=== PATIENT | female | born 1935 | race Caucasian/White ===

== ENCOUNTER 2020-01-27 00:32 | Emergency (ER) | payer MEDICARE, MEDICAID ==
[~2020-01-27] VITALS: Ht 162.6 cm; Wt 113.6 kg
[~2020-01-27 00:32] MED LIST: CLA10T PO; CYCL-394 PO; DILT-91 PO; LANS15CA10 PO; LEVO75TA57 PO; LIOT25TA12 PO; LOSA25TA96 PO; METF500T PO; SOLI5TAB6 PO; [UNRECOGNIZED DRUG - CODE]
[2020-01-27 00:53] VITALS: BP 146/86
[2020-01-27] MEDS ORDERED: famotidine/PF 10 mg/ml inj IV ONE (01:15)
[2020-01-27] MEDS ORDERED: methylPREDNISolone sod succ 125mg/2ml vial IV ONE (01:15)
[2020-01-27] MEDS ORDERED: diphenhydrAMINE 50 mg/ml inj IV ONE ×2 (01:30→02:35)
[2020-01-27] MEDS ORDERED: proCHLORperazine 10 MG/2 ml inj IV ONE (01:55)
[2020-01-27] MEDS ORDERED: ketorolac trometh. 30mg/ml inj. IV ONE (01:55)
[2020-01-27] MEDS ORDERED: normal saline 1000ml 1,000 ML IV ONE (01:55)
[2020-01-27] MEDS ORDERED: CEPH250T PO (02:33)
== END 2020-01-27 03:16 | disposition home or self-care (01) ==
LOC: ER 00:33
DX: R21 Rash and other nonspecific skin eruption (principal); T36.8X5A Adverse effect of other systemic antibiotics, initial encounter; I48.91 Unspecified atrial fibrillation; I10 Essential (primary) hypertension; J44.9 Chronic obstructive pulmonary disease, unspecified; E11.9 Type 2 diabetes mellitus without complications; G89.29 Other chronic pain; Z98.890 Other specified postprocedural states; Z88.2 Allergy status to sulfonamides; Z88.8 Allergy status to other drugs, medicaments and biological substances; Z79.899 Other long term (current) drug therapy
CPT/HCPCS: 96374; 96375; 96376; 99284; J0780; J1200; J1885; J2930; J3490; J7030

== ENCOUNTER 2020-03-21 19:12 | Emergency (ER) | payer MEDICARE, MEDICAID ==
[~2020-03-21] VITALS: Ht 162.6 cm; Wt 113.4 kg
[2020-03-21] MEDS ORDERED: etomidate 2mg/ml inj. IV ONE ×2 (19:45→21:00)
[2020-03-21] MEDS ORDERED: fentaNYL/PF 50MCG/1 ML 2ML syringe IV ONE (19:45)
[2020-03-21] MEDS ORDERED: ESTR42.510 (19:50)
[2020-03-21] MEDS ORDERED: DILT180C53 PO (19:50)
[2020-03-21] MEDS ORDERED: POTA-82 PO (19:50)
[2020-03-21] MEDS ORDERED: APIX5TAB3 PO (19:50)
[2020-03-21] MEDS ORDERED: DOCU250C31 PO (19:50)
[2020-03-21] MEDS ORDERED: ALBU18HF2 INH (19:50)
[2020-03-21] MEDS ORDERED: LOSA25TA41 PO (19:50)
[2020-03-21] MEDS ORDERED: PIOG15TA67 PO (19:50)
[2020-03-21] MEDS ORDERED: LIOT5TAB10 PO (19:50)
[2020-03-21] MEDS ORDERED: LEVO75TA7 PO (19:50)
[2020-03-21] MEDS ORDERED: FLUD0.1T PO (19:50)
[2020-03-21] MEDS ORDERED: OMEP-50 PO (19:50)
--- NOTE | 2020-03-21 20:03 | NUR ---
MD at bedside examing the pt. Pt. had opportunities to ask questions regarding recommended procedure. All concerns addressed by EDP.
[2020-03-21] MEDS ORDERED: ondansetron/PF 4mg/2ml inj IV ONE (20:50)
--- NOTE | 2020-03-21 21:19 | NUR ---
Spoke with daughter re pt. Info regarding aftercare provided over the phone. Daughter will set up room for pt at her residence that will be accessible.
--- NOTE | 2020-03-21 21:33 | NUR ---
daughter Jen [phone] for ride home
[2020-03-21] MEDS ORDERED: ONDA4TAB6 PO (22:25)
[2020-03-21] MEDS ORDERED: HYDR-3965 PO (22:25)
[2020-03-21 22:43] VITALS: BP 156/75
== END 2020-03-21 22:44 | disposition home or self-care (01) ==
LOC: ER 19:12
DX: S52.501A Unspecified fracture of the lower end of right radius, initial encounter for closed fracture (principal); S43.004A Unspecified dislocation of right shoulder joint, initial encounter; S42.201A Unspecified fracture of upper end of right humerus, initial encounter for closed fracture; I48.91 Unspecified atrial fibrillation; I10 Essential (primary) hypertension; J44.9 Chronic obstructive pulmonary disease, unspecified; E11.9 Type 2 diabetes mellitus without complications; Z86.19 Personal history of other infectious and parasitic diseases; Z98.890 Other specified postprocedural states; Z88.2 Allergy status to sulfonamides; Z88.8 Allergy status to other drugs, medicaments and biological substances; Z79.01 Long term (current) use of anticoagulants; Z79.899 Other long term (current) drug therapy; W18.30XA Fall on same level, unspecified, initial encounter; Y93.89 Activity, other specified; Y92.89 Other specified places as the place of occurrence of the external cause; Y99.8 Other external cause status
CPT/HCPCS: 23650; 23675; 73020; 73030; 73110; 96374; 96375; 96376; 99285; J2405; J3010; 94760; 99152

== ENCOUNTER → 2023-05-04 | Outpatient (CLI) | payer MEDICARE, MEDICAID ==
[~2023-05-04] MED LIST changes: +ACET-1025 PO; +ALBU18HF2 INH; +APIX5TAB3 PO; +CALCIUM CHEWS; -CLA10T PO; -CYCL-394 PO; -DILT-91 PO; +DILT180C53 PO; +DOCU-361 PO; +EYE VITAMIN; +FISH OIL; +FLUD0.1T PO; +LACT1CAP65 PO; -LANS15CA10 PO; -LEVO75TA57 PO; +LEVO75TA7 PO; -LIOT25TA12 PO; +LIOT5TAB10 PO; +LOSA25TA41 PO; -LOSA25TA96 PO; -METF500T PO; +MULTIVIT; +OMEP20CA16 PO; +ONQPUMP ADDCANAL; +POTA-366 PO; +SOLI5TAB2 PO; -SOLI5TAB6 PO; -[UNRECOGNIZED DRUG - CODE]; +iohexol 350MG/ML 100ml bottle IV ONE
[2023-05-04 10:29] LABS: BASOPHILS % (AUTO) 1.1 % (0-1); EOSINOPHILS % (AUTO) 0.3 % (0-6); HEMATOCRIT 36.8 % (35.0-45.0); HEMOGLOBIN 12.3 g/dl (12.0-16.0); LYMPHOCYTES # (AUTO) 0.9 X10'3 (1.1-4.8); LYMPHOCYTES % (AUTO) 19.1 % (21-51); MEAN CORPUSCULAR HEMOGLOBIN 33.8 PG (27.0-31.0); MEAN CORPUSCULAR HGB CONC 33.4 g/dL (33.0-36.5); MEAN CORPUSCULAR VOLUME 101.3 FL (78-98); MEAN PLATELET VOLUME 9.1 FL (7.4-10.4); MONOCYTES # (AUTO) 0.2 X10'3 (0-0.9); MONOCYTES % (AUTO) 5.4 % (2-12); NEUTROPHILS # (AUTO) 3.4 X10'3 (1.8-7.7); NEUTROPHILS % (AUTO) 74.1 % (42-75); PLATELET COUNT 195 X10'3 (140-440); RED BLOOD COUNT 3.63 X10'6 (4.20-5.60); RED CELL DISTRIBUTION WIDTH 14.9 % (11.5-14.5); WHITE BLOOD COUNT 4.5 X10'3 (4.5-11.0)
[2023-05-04 10:45] LABS: APTT 30 SECONDS (22-32); INR 1.1 INR; PROTHROMBIN TIME 11.8 SECONDS (9.0-12.0)
[2023-05-04 10:46] LABS: ALANINE AMINOTRANSFERASE 16 U/L (12-78); ALBUMIN 3.1 G/DL (3.4-5.0); ALBUMIN/GLOBULIN RATIO 0.9 (1.1-1.5); ALKALINE PHOSPHATASE 86 IU/L (46-116); ANION GAP 8 (8-16); ASPARTATE AMINO TRANSFERASE 19 U/L (10-37); BILIRUBIN,TOTAL 1.1 MG/DL (0.1-1.0); BLOOD UREA NITROGEN 13 MG/DL (7-18); CALCIUM 8.9 MG/DL (8.5-10.1); CHLORIDE 98 MMOL/L (99-107); CREATININE 0.65 MG/DL (0.40-0.90); GLUCOSE 83 MG/DL (70-104); POTASSIUM 3.3 MMOL/L (3.5-5.1); SODIUM 132 MMOL/L (135-145); TOTAL CARBON DIOXIDE 26.4 MMOL/L (24-32); TOTAL PROTEIN 6.7 G/DL (6.4-8.2); eGFR 86 ML/MIN
== END | disposition home or self-care (01) ==
LOC: 64 CT 09:04
PROVIDERS: ATTEND Student in an Organized Health Care Education/Training Program
DX: I25.10 Atherosclerotic heart disease of native coronary artery without angina pectoris (principal); I48.91 Unspecified atrial fibrillation; I48.92 Unspecified atrial flutter
CPT/HCPCS: 36415; 75572; 80053; 85025; 85610; 85730; J3490; Q9967

== ENCOUNTER 2025-02-03 04:22 | Emergency (ER) | payer MEDICARE, MEDICAID ==
[~2025-02-03] VITALS: Ht 162.6 cm; Wt 86.4 kg
[~2025-02-03 04:22] MED LIST changes: +ATOR10TA87 PO; -CALCIUM CHEWS; +CRANBERRY; -DILT180C53 PO; -DOCU-361 PO; +DOCU50CA13 PO; -FISH OIL; -LACT1CAP65 PO; +LOP12.5T PO; -LOSA25TA41 PO; -ONQPUMP ADDCANAL; +PIOG15TA8 PO; +POTA-205 PO; -POTA-366 PO; +VITAMIN D3; -iohexol 350MG/ML 100ml bottle IV ONE
[2025-02-03 04:28] VITALS: TEMP 97.6
--- NOTE | 2025-02-03 05:08 | Physician Documentation ---
History of Present Illness ~ Chief Complaint: Rib pain Stated Complaint: ABD PAIN Time Seen by MD: 05:08 Primary Medical Doctor: KEVIN GILES Patient presents to the emergency room for evaluation of left-sided rib pain. Patient went to go reach for something for which she forgets what she was reaching for last night and suddenly felt rib pain. She feels she may have pulled something. Pain is exacerbated with movement in respirations and palpation underneath her left breast. Tetanus within 5 Years?: Yes Allergies: Coded Allergies: sulfamethoxazole (Verified Allergy, Mild, rash/ itching, 01/27/20) trimethoprim (Verified Allergy, Mild, rash/ itching, 01/27/20) Sulfa (Sulfonamide Antibiotics) (Verified Allergy, Unknown, rash, ITCH FROM HEAD TO TOE, 05/16/23) aspartame (Verified Allergy, Unknown, FROZEN LEG UP TO HIP X 1 MONTH, 05/16/23) Active Prescriptions See Medication Reconciliation Form. Medication Reconciliation Scheduled Apixaban (Eliquis), 1 TAB PO BID, (Reported) Atorvastatin Calcium* (Lipitor*), 0.5 TABLET PO QPM, (Reported) Docusate Sodium (Colace Clear), 2 CAP PO QAM, (Reported) Fludrocortisone Acetate (Fludrocortisone Acetate), 1 TAB PO DAILY, (Reported) Levothyroxine Sodium (Levothyroxine Sodium), 1 TAB PO DAILY, (Reported) Liothyronine Sodium (Liothyronine Sodium), 1 TAB PO DAILY, (Reported) Metoprolol Tartrate (Lopressor tablet), 12.5 MG PO BID, (Reported) Omeprazole (Omeprazole), 1 CAP PO DAILY, (Reported) Pioglitazone Hcl* (Actos*), 1 TAB PO QAM, (Reported) Potassium Chloride (Potassium Chloride), 10 MEQ PO BID, (Reported) Solifenacin Succinate (VESICARE tablet), 1 TAB PO DAILY, (Reported) Scheduled PRN Acetaminophen (Tylenol Extra Strength), 1 TAB PO Q6H PRN for pain or fever, (Reported) Albuterol Sulfate (Ventolin Hfa), 2 PUFFS INH Q4H PRN for SOB or wheezing, (Reported) Miscellaneous Medications [Cranberry], (Reported) [Eye Vitamin], (Reported) [Multivit], (Reported) [Vitamin D3], (Reported) Past Medical History Past Medical History: Atrial Fibrillation, Hypertension, COPD, Hepatitis B, UTI, Diabetes, Thyroid (unspecified), Chronic Pain Past Surgical History: orthopedic surgeries Alcohol Use: None Drug Use: none Lives In: Home Review of Systems ROS All review of systems negative except as per HPI Physical Exam Vital Signs: Temperature: 97.6, Heart Rate: 87, Respiratory Rate: 16, BP: 197/101, Pulse Oximetry: 97, Weight: 86.360 Physical Exam General: Patient is awake, alert, oriented x4 in no acute distress Head: Normocephalic and atraumatic. Eyes: Conjunctival normal. EOMI. PERRL. ENT: Mucous membranes moist. Neck: Supple, trachea is midline. Chest: Clear to auscultation bilaterally without rales, rhonchi, or wheezes. There is no accessory muscle use or retractions. Tenderness to palpation to ribs beneath left breast Cardiac: RRR without murmurs, gallops, or rubs. Progress Results/Orders Results/Orders Orders - RAUL HUMMEL MD Chest,Single View (02/03/25 05:12) Electrocardiogram (02/03/25 05:13) Completed Orders - RAUL HUMMEL MD Ketorolac Trometh 15mg/Ml Vial (Toradol (02/03/25 05:15) Acetaminophen 325mg Tablet (Tylenol Tabl (02/03/25 05:15) Chest,Single View (02/03/25 05:12) Medications Received in ER Medications (Trade) Dose Ordered Sig/Mar Route PRN Reason Start Time Stop Time Status Last Admin Dose Admin (Toradol injection) 30 mg ONCE ONCE IM 02/03/25 05:15 02/03/25 05:19 DC 02/03/25 05:30 30 MG (Tylenol tablet) 975 mg ONCE ONCE PO 02/03/25 05:15 02/03/25 05:16 DC 02/03/25 05:31 975 MG Vital Signs 02/03/25 02/03/25 04:28 05:30 Temp 97.6 Pulse 87 Resp 16 18 B/P (MAP) 197/101 Pulse Ox 97 EKG/XRAY/CT/US/VASC/MRI EKG : Additional Comment EKG interpreted by myself shows time of 0542, rate 72, atrial fibrillation, normal axis, no ST changes Chest X-Ray : Additional Comments One view chest x-ray interpreted by myself shows cardiomegaly, no pneumothorax, no appreciable fractures. Medical Decision Making Findings Patient presents to the emergency room for evaluation of rib pain as per HPI. Differentials include but are not limited to rib pain, musculoskeletal pain, pneumothorax, ACS therefore emergent chest x-ray indicated. Chest x-ray reassuring and EKG is reassuring. Symptoms are likely musculoskeletal in nature. Ibuprofen and Tylenol for pain. I have considered alternative diagnosis including aortic pathology and pulmonary embolism given tenderness to palpation in increased with movement he had not feel this is the case. Departure Disposition: HOME / SELF CARE / HOMELESS Impression: Primary Impression: Rib pain Condition: Stable Additional Instructions: Ibuprofen 600 mg with Tylenol 1000 mg every 6 hours together for pain. Follow up with your doctor as you may need pain management and possible referrals for physical therapy. Referrals: NO PRIMARY CARE PROVIDER (PCP) Signature Scribe Signature: No scribe Attestation: The note accurately reflects work and decisions made by me.Raul Hummel MD 02/03/25 06:01 RAUL HUMMEL MD Feb 03, 2025 05:08
[2025-02-03] MEDS: ketorolac trometh 15mg/ml vial 15 MG/ML ML IM ONE (05:30)
[2025-02-03] MEDS: acetaminophen 325mg tablet PO ONE (05:31)
--- NOTE | 2025-02-03 06:13 | RADIOLOGY REPORT ---
EXAM: XR Chest, 1 View CLINICAL INDICATION: left sided rib pain TECHNIQUE: Frontal view of the chest. COMPARISON: No relevant prior studies available. FINDINGS: LUNGS AND PLEURAL SPACES: See below. HEART: Cardiomegaly with mild congestion. MEDIASTINUM: Unremarkable. Normal mediastinal contour. BONES/JOINTS: Unremarkable. No acute fracture. OTHER FINDINGS: Comparison None. IMPRESSION: Cardiomegaly with mild congestion. HS:Y
[2025-02-03 06:30] VITALS: BP 179/115; PULSE 85; RESP 16; O2SAT 98
--- NOTE | 2025-02-03 08:03 | ELECTROCARDIOGRAPH REPORT ---
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
== END 2025-02-03 06:34 | disposition home or self-care (01) ==
LOC: ER 04:22
DX: R07.81 Pleurodynia (principal); E11.9 Type 2 diabetes mellitus without complications; I10 Essential (primary) hypertension; I48.91 Unspecified atrial fibrillation; J44.9 Chronic obstructive pulmonary disease, unspecified; Z88.2 Allergy status to sulfonamides; Z88.1 Allergy status to other antibiotic agents; Z79.899 Other long term (current) drug therapy; Z79.84 Long term (current) use of oral hypoglycemic drugs; Z79.01 Long term (current) use of anticoagulants
CPT/HCPCS: 71045; 93005; 96372; 99284; J1885